=== PATIENT | male | born 1975 | race Caucasian/White ===

== ENCOUNTER 2019-11-17 14:13 | Emergency (ER) | payer OTHER ==
--- NOTE | 2019-11-17 14:25 | PDOC ---
Attending Attestation - Resident Resident Name: Surjit Graves - ED Attending Attestation I have performed the following: I have examined & evaluated the patient, The case was reviewed & discussed with the resident, I agree w/resident's findings & plan, Exceptions are as noted - HPI HPI: 11/17/19 15:04 Laceration left forearm, superficial, from sharp metal edge. No distal numbness tingling pain or weakness. No limited range of motion wrist or fingers. - Physicial Exam PE: 11/17/19 15:04 Superficial laceration of the mid forearm, volar. Consists only of epidermis. No deep structures exposed. No deep punctures. Neurovascular exam distal to the laceration completely intact. - Medical Decision Making 11/17/19 15:05 Laceration was thoroughly scrubbed and irrigated with saline by Dr. Graves, explored and verified to be superficial, closed with 4-0 nylon interrupted skin sutures. Wound care instructions, suture removal 7 to 10 days. Return if bleeding or sign of infection. Tetanus booster administered. Fully ambulatory and in no pain or other distress at discharge Discharge - Discharge Information Problems reviewed: Yes Clinical Impression/Diagnosis: Laceration Condition: Improved Disposition: HOME - Admission No - Follow up/Referral Referrals: Agustín Dunham [Primary Care Provider] - - Patient Discharge Instructions Patient Printed Discharge Instructions: DI for Laceration Repair Additional Instructions: Suture removal 7 to 10 days. Return to ER for wound check if bleeding or sign of infection. Clean and dress daily with bacitracin and keep covered. - Post Discharge Activity
[2019-11-17 14:34] VITALS: BP 141/104; PULSE 87; TEMP 98.7; BMI 23.6
[2019-11-17] MEDS ORDERED: DIPHTH,PERTUSS(ACELL),TET 0.5 ML DISP.SYRIN IM ONE ×2 (14:59→15:11)
--- NOTE | 2019-11-17 15:01 | PDOC ---
History of Present Illness - General Chief Complaint: Laceration Stated Complaint: LACERATION TO LEFT FOREARM Time Seen by Provider: 11/17/19 14:24 - History of Present Illness Initial Comments: 11/17/19 15:00 Simple lac Past History - Medical History Allergies/Adverse Reactions: Allergies Allergy/AdvReac Type Severity Reaction Status Date / Time No Known Allergies Allergy Verified 11/17/19 14:20 Home Medications: Ambulatory Orders NK [No Known Home Medication] 11/17/19 COPD: No Other medical history: DENIES - Immunization History Td Vaccination: Yes - Psycho-Social/Smoking History Smoking Status: No Smoking History: Never smoked Number of Cigarettes Smoked Daily: 0 - Substance Abuse Hx (Audit-C & DAST Scrn) How often the patient has a drink containing alcohol: 2-4 times / month Number of drinks the patient has on a typical day: 1 or 2 Score: In Men: 4 or > Positive; In Women: 3 or > Positive: 2 Screen Result (Pos requires Nsg. Audit-10AR): Negative In the last yr the pt used illegal drug/Rx for NonMed reason: No Score: Yes response is considered Positive: 0 Screen Result (Positive result requires Nsg. DAST-10): Negative *Physical Exam - Vital Signs Last Vital Signs Temp Pulse Resp BP Pulse Ox 98.7 F 87 18 141/104 H 100 11/17/19 14:20 11/17/19 14:20 11/17/19 14:20 11/17/19 14:20 11/17/19 14:20 Discharge - Discharge Information Problems reviewed: Yes Clinical Impression/Diagnosis: Laceration Condition: Stable Disposition: HOME - Follow up/Referral Referrals: Agustín Dunham [Primary Care Provider] - - Patient Discharge Instructions Patient Printed Discharge Instructions: DI for Laceration Repair, DI for Suture Removal Additional Instructions: You were seen in the ER for a laceration to your left arm. We gave you a tetanus booster and placed 4 sutures. You should see a doctor to have them removed in 7- 10 days. Please seek medical attention if you have redness, swelling, discharge, or increased pain at the site of you laceration. - Post Discharge Activity Work/Back to School Note: Back to Work
--- NOTE | 2019-11-17 19:30 | PDOC ---
History of Present Illness - General Chief Complaint: Laceration Stated Complaint: LACERATION TO LEFT FOREARM Time Seen by Provider: 11/17/19 14:24 - History of Present Illness Initial Comments: 11/17/19 19:24 HPI 44yo M with no PMH present with a laceration to the dorsal aspect of his left forearm. 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 Unsure of last tetanus. PMH/PSH/Meds/Allergies: none ROS: negative for fever, weakness, numbness, chest pain, shortness of breath, abdominal pain. PE: Well appearing, NAD Heart RRR Lungs CTAB 3cm superficial laceration to posterior aspect of left forearm. Neurovascularly intact. Vital Signs Temp Pulse Resp BP Pulse Ox 98.7 F 87 18 141/104 H 100 11/17/19 14:20 11/17/19 14:20 11/17/19 14:20 11/17/19 14:20 11/17/19 14:20 MDM: 44yo M with no PMH present with a laceration to the dorsal aspect of his left forearm. Superficial. Repaired with sutures, as in procedure note. DC home. Past History - Medical History Allergies/Adverse Reactions: Allergies Allergy/AdvReac Type Severity Reaction Status Date / Time No Known Allergies Allergy Verified 11/17/19 14:20 Home Medications: Ambulatory Orders NK [No Known Home Medication] 11/17/19 COPD: No Other medical history: DENIES - Immunization History Td Vaccination: Yes - Psycho-Social/Smoking History Smoking Status: No Smoking History: Never smoked Number of Cigarettes Smoked Daily: 0 Information on smoking cessation initiated: No - Substance Abuse Hx (Audit-C & DAST Scrn) How often the patient has a drink containing alcohol: 2-4 times / month Number of drinks the patient has on a typical day: 1 or 2 Score: In Men: 4 or > Positive; In Women: 3 or > Positive: 2 Screen Result (Pos requires Nsg. Audit-10AR): Negative In the last yr the pt used illegal drug/Rx for NonMed reason: No Score: Yes response is considered Positive: 0 Screen Result (Positive result requires Nsg. DAST-10): Negative *Physical Exam - Vital Signs Last Vital Signs Temp Pulse Resp BP Pulse Ox 98.7 F 87 18 141/104 H 100 11/17/19 14:20 11/17/19 14:20 11/17/19 14:20 11/17/19 14:20 11/17/19 14:20 ED Treatment Course - Medications Given in the ED: ED Medications Discontinued Medications Generic Name Dose Route Start Last Admin Trade Name Frank PRN Reason Stop Dose Admin Diphtheria/Tetanus/Acell Pertussis 0.5 ml 11/17/19 14:59 11/17/19 15:13 Boostrix - IM 11/17/19 15:00 0.5 ml .ONCE ONE Administration Discharge - Discharge Information Problems reviewed: Yes Clinical Impression/Diagnosis: Laceration Condition: Improved Disposition: HOME - Follow up/Referral Referrals: Agustín Dunham [Primary Care Provider] - - Patient Discharge Instructions Patient Printed Discharge Instructions: DI for Laceration Repair, DI for Suture Removal Additional Instructions: Suture removal 7 to 10 days. Return to ER for wound check if bleeding or sign of infection. Clean and dress daily with bacitracin and keep covered. - Post Discharge Activity Work/Back to School Note: Back to Work Laceration/Wound Repair - Laceration/Wound Repair Left Arm Depth, Shape: superficial Irrigated w/ Saline: Yes Anesthesia: 1% Lidocaine Wound Repaired With: Sutures Suture Size/Type: 4:0 (Four 4:0 sutures, simple interrupted), nylon
== END 2019-11-17 15:19 | disposition home or self-care (01) ==
LOC: FER 14:13
PROC: 0HQEXZZ Repair Left Lower Arm Skin, External Approach (ICD-10-PCS; principal; 2019-11-17)
PROC: 3E0234Z Introduction of Serum, Toxoid and Vaccine into Muscle, Percutaneous Approach (ICD-10-PCS; 2019-11-17)
DX: S51.812A Laceration without foreign body of left forearm, initial encounter (principal)
CPT/HCPCS: 90715; 99284-25